=== PATIENT | female | born 1980 | race African-American/Black ===

== ENCOUNTER 2021-12-29 08:17 | Emergency (ER) | payer OTHER ==
[2021-12-29 08:33] VITALS: BP 133/77; PULSE 90; TEMP 97.3; BMI 34.4
[2021-12-29] MEDS ORDERED: predniSONE 20 MG TABLET (UD) PO ONE (08:56)
[2021-12-29] MEDS ORDERED: KETOROLAC TROMETHAMINE 30 MG/1 ML VIAL IM ONE (08:56)
[2021-12-29] MEDS ORDERED: LIDOCAINE 5% TOPICAL PATCH TP ONE (08:56)
[2021-12-29] MEDS ORDERED: predniSONE 10 MG TABLET (UD) ONE (09:00)
[2021-12-29] MEDS ORDERED: predniSONE 20 MG TABLET (UD) ONE (09:00)
[2021-12-29] MEDS ORDERED: LIDOCAINE 5% TOPICAL PATCH ONE (09:00)
[2021-12-29] MEDS ORDERED: KETOROLAC TROMETHAMINE 30 MG/1 ML VIAL ONE (09:00)
[2021-12-29] MEDS ORDERED: LIDOCAINE PATCH REMOVAL MC SCH (22:00)
== END 2021-12-29 10:09 | disposition home or self-care (01) ==
LOC: JER 08:17 → JERFT 08:17
PROC: 3E0233Z Introduction of Anti-inflammatory into Muscle, Percutaneous Approach (ICD-10-PCS; principal; 2021-12-29)
DX: M54.12 Radiculopathy, cervical region (principal)
CPT/HCPCS: 99283-25

== ENCOUNTER 2022-05-17 09:34 | Emergency (ER) | payer OTHER ==
[2022-05-17 10:05] VITALS: BP 154/86; PULSE 103; RESP 16; TEMP 98.6; BMI 32.8
[2022-05-17] MEDS ORDERED: PENICILLIN G BENZATHINE 2,400,000 UNIT/4 ML PFS IM ONE (11:18)
[2022-05-17] MEDS ORDERED: DEXAMETHASONE SOD PHOSPHATE 10 MG/1 ML VIAL IVPUSH ONE (11:28)
[2022-05-17] MEDS ORDERED: PENICILLIN G BENZATHINE 1,200,000 UNIT/2 ML PFS IM ONE (11:29)
[2022-05-17] MEDS ORDERED: DEXAMETHASONE SOD PHOSPHATE 10 MG/1 ML VIAL ONE (11:31)
== END 2022-05-17 11:49 | disposition home or self-care (01) ==
LOC: JERFT 09:34
PROC: 3E033GC Introduction of Other Therapeutic Substance into Peripheral Vein, Percutaneous Approach (ICD-10-PCS; principal; 2022-05-17)
PROC: 3E023GC Introduction of Other Therapeutic Substance into Muscle, Percutaneous Approach (ICD-10-PCS; principal; 2022-05-17)
DX: A53.9 Syphilis, unspecified (principal); J02.9 Acute pharyngitis, unspecified
CPT/HCPCS: 99284-25; J1100

== ENCOUNTER 2023-01-01 08:33 | Emergency (ER) | payer OTHER ==
[2023-01-01 08:37] VITALS: BMI 34.7
[2023-01-01] MEDS ORDERED: KETOROLAC TROMETHAMINE 15 MG/ML VIAL IVPUSH ONE (09:47)
[2023-01-01] MEDS ORDERED: DEXAMETHASONE SOD PHOSPHATE 10 MG/1 ML VIAL IVPUSH ONE (09:47)
[2023-01-01] MEDS ORDERED: PENICILLIN G BENZATHINE 2,400,000 UNIT/4 ML PFS IM ONE (09:50)
[2023-01-01] MEDS ORDERED: DEXAMETHASONE SOD PHOSPHATE 10 MG/1 ML VIAL ONE (09:55)
[2023-01-01] MEDS ORDERED: KETOROLAC TROMETHAMINE 15 MG/ML VIAL ONE (09:55)
[2023-01-01] MEDS ORDERED: DOXYCYCLINE HYCLATE 100 MG CAPSULE PO ONE (10:05)
[2023-01-01] MEDS ORDERED: SODIUM CHLORIDE 0.9% 500 ML INFUS.BAG IV ONE (10:07)
[2023-01-01 10:42] LABS: HEMATOCRIT 40.4 % (32.4-45.2); HEMOGLOBIN 13.1 GM/dL (10.7-15.3); MCH 26.3 pg (25.7-33.7); MCHC 32.3 g/dl (32.0-36.0); MEAN CELL VOLUME 81.5 fl (80-96); MEAN PLT VOLUME 8.7 fl (7.5-11.1); PLATELET COUNT 304 10^3/uL (134-434); RBC 4.95 M/mm3 (3.60-5.2); RDW 13.7 % (11.6-15.6); WHITE BLOOD COUNT 23.3 K/mm3 (4.0-10.0)
[2023-01-01] MEDS ORDERED: cefTRIAXone SODIUM 1 GM VIAL ONE (11:05)
[2023-01-01 11:09] LABS: CALCIUM 9.2 mg/dL (8.5-10.1)
[2023-01-01 11:11] LABS: ALBUMIN 3.6 g/dl (3.4-5.0); BLOOD UREA NITROGEN 8.3 mg/dL (7-18)
[2023-01-01 11:13] LABS: CREATININE 0.8 mg/dL (0.55-1.3)
[2023-01-01 12:09] LABS: SYPHILIS W/ RPR CONF REACTIVE (NONREACTIVE)
[2023-01-01 12:16] LABS: HIV INTERPRETATION NEGATIVE (NEGATIVE)
[2023-01-01 12:52] LABS: PH,URINE 5.5 (5.0-8.0); URINE APPEARANCE CLEAR; URINE BILIRUBIN NEGATIVE (NEGATIVE); URINE COLOR YELLOW; URINE GLUCOSE (UA) NEGATIVE (NEGATIVE); URINE KETONE NEGATIVE (NEGATIVE); URINE LEUK ESTERASE NEGATIVE (NEGATIVE); URINE NITRITE NEGATIVE (NEGATIVE); URINE PROTEIN NEGATIVE (NEGATIVE); URINE UROBILINOGEN 0.2 mg/dL (0.2-1.0)
[2023-01-01 14:08] VITALS: BP 116/75; PULSE 96; RESP 20; TEMP 97.3
== END 2023-01-01 14:20 | disposition home or self-care (01) ==
LOC: JER 08:33
PROC: 3E0333Z Introduction of Anti-inflammatory into Peripheral Vein, Percutaneous Approach (ICD-10-PCS; principal; 2023-01-01)
PROC: 3E03329 Introduction of Other Anti-infective into Peripheral Vein, Percutaneous Approach (ICD-10-PCS; 2023-01-01)
PROC: 3E033GC Introduction of Other Therapeutic Substance into Peripheral Vein, Percutaneous Approach (ICD-10-PCS; 2023-01-01)
PROC: 3E02329 Introduction of Other Anti-infective into Muscle, Percutaneous Approach (ICD-10-PCS; 2023-01-01)
DX: Z20.2 Contact with and (suspected) exposure to infections with a predominantly sexual mode of transmission (principal); J02.0 Streptococcal pharyngitis; R53.81 Other malaise; R07.0 Pain in throat; R22.1 Localized swelling, mass and lump, neck
CPT/HCPCS: 36415; 80053; 81003; 84703; 85027; 86593; 86705; 86707; 86780; 86803; 87086; 87350; 87389; 87491; 87517; 87591; 87651; 87661; 99284-25; J1100